=== PATIENT | female | born 1965 | race Caucasian/White ===

== ENCOUNTER → 2016-04-25 | Outpatient (CLI) | payer MEDICARE, OTHER ==
[2016-04-25 12:20] LABS: HEMOGLOBIN 13.4 gm/dl (12.3-15.3); RED BLOOD COUNT 4.56 M/UL (4.00-5.10); WHITE BLOOD COUNT 7.4 K/UL (4.5-11.0)
[2016-04-25 12:53] LABS: BUN/CREATININE RATIO 18 (0-10)
== END ==
LOC: LAB 09:59
PROVIDERS: Nurse Practitioner Primary Care
DX: E03.9 Hypothyroidism, unspecified (principal); R53.82 Chronic fatigue, unspecified
CPT/HCPCS: 36415; 80053; 82784; 84443; 85025

== ENCOUNTER → 2016-06-07 | Outpatient (CLI) | payer MEDICARE, OTHER | LOC: RAD 14:34 | DX: R10.84 Generalized abdominal pain (principal); K59.00 Constipation, unspecified; R19.4 Change in bowel habit | CPT/HCPCS: 74020 ==

== ENCOUNTER → 2016-06-20 | Outpatient (CLI) | payer MEDICARE, OTHER | LOC: RAD 09:24 | DX: R13.10 Dysphagia, unspecified (principal); K21.9 Gastro-esophageal reflux disease without esophagitis; Z98.890 Other specified postprocedural states | CPT/HCPCS: 74230; 92611-GN ==

== ENCOUNTER 2020-09-06 15:38 | Emergency (ER) | payer MEDICARE, OTHER ==
[~2020-09-06 15:38] MED LIST: ABREVA2 GM TP; ADVAIR HFA 230-28 GM INH; ALBUTEROL SULFAT8 MG INH; ALBUTEROL1.25 MG/3 INH; AMBIEN10 MG PO; AMMONIUM LACTA140 GM TP; ATARAX PO; AZELASTINE137 MCG/0.; AZELASTINE137 MCG/0. INH; BENTYL 20MG TAB20 MG PO; BREO ELLIPTA 200-25 INH; CLOTRIMAZOLE-BE30 ML TP; COLACE 100MG C100 MG PO; COLACE100 MG PO; CRESTOR20 MG PO; CYANOCOBAL1000 MCG/1 INJ; CYCLOBENZAPRINE10 MG PO; FLEXERIL 10 MG10 MG PO; HYDROXYZINE HCL25 MG PO; LINZESS145 MCG PO; LOPRESSOR 25 MG25 MG PO; MELATONIN3 MG PO; MIRALAX17 GM PO; MIRTAZAPINE30 MG PO; MOBIC15 MG PO; MULTI-VITAMIN1 EACH PO; MULTIVITAMINS1 EAC1 PO; MYCOSTATIN POWD15 GM TOP; NASAL MIST126 ML INH; NEOSPORIN OIN14.2 GM TOP; NEOSPORIN TOP; NEURONTIN 300300 MG PO; NIZORAL 2% CREA15 GM TOP; NYSTATIN1 EAC2 MC; OCEAN NASAL SPRAY INH; PROAIR HFA8.5 GM INH; PROTONIX40 MG PO; QUETIAPINE FUM100 MG PO; REFRESH TEARS15 ML EYEBOTH; REMERON30 MG PO; SEROQUEL400 MG PO; SINGULAIR10 MG PO; SORE THROAT SP177 ML PO; SYNTHROID112 MCG PO; TROKENDI XR200 MG PO; TYLENOL 325MG325 MG PO; TYLENOL325 MG PO; VENTOLIN HFA 66.7 GM INH; VIBRAMYCIN100 MG PO; VITAMIN B-121000 MC3 INJ; XYZAL5 MG PO; ZOFRAN4 MG PO; ZOLOFT100 MG PO
[2020-09-06 17:19] LABS: HEMOGLOBIN 13.4 gm/dl (12.3-15.3); RED BLOOD COUNT 4.48 M/UL (4.00-5.10); WHITE BLOOD COUNT 8.4 K/UL (4.5-11.0)
[2020-09-06] MEDS ORDERED: PYRIDIUM200 MG PO (17:36)
[2020-09-06] MEDS ORDERED: OMNICEF 300 MG300 MG PO (17:36)
== END 2020-09-06 19:30 | disposition home or self-care (01) ==
LOC: ER1 15:38
PROVIDERS: Emergency Medicine
DX: N39.0 Urinary tract infection, site not specified (principal)
CPT/HCPCS: 80053; 81001; 83690; 85025; 96374; 96375; 99284; J0696; J1885; J2405; J7030

== ENCOUNTER 2021-09-05 15:22 | Emergency (ER) | payer MEDICARE, OTHER | END 2021-09-05 17:50 | disposition home or self-care (01) | LOC: ER1 15:22 | DX: S13.4XXA Sprain of ligaments of cervical spine, initial encounter (principal); S73.101A Unspecified sprain of right hip, initial encounter; S50.01XA Contusion of right elbow, initial encounter; S80.01XA Contusion of right knee, initial encounter; S00.83XA Contusion of other part of head, initial encounter; S60.222A Contusion of left hand, initial encounter; I11.9 Hypertensive heart disease without heart failure; K21.9 Gastro-esophageal reflux disease without esophagitis; J45.909 Unspecified asthma, uncomplicated; W01.10XA Fall on same level from slipping, tripping and stumbling with subsequent striking against unspecified object, initial encounter | CPT/HCPCS: 70450; 72125; 73080; 73130; 73564; 73700; 99284 ==

== ENCOUNTER → 2021-09-05 | Outpatient (CLI) | payer MEDICARE, OTHER ==
[~2021-09-05] MED LIST changes: +OMNICEF 300 MG300 MG PO; +PYRIDIUM200 MG PO
== END ==
LOC: HEART 5 14:57
DX: R00.2 Palpitations (principal)

== ENCOUNTER 2021-09-16 19:43 | Emergency (ER) | payer MEDICARE, OTHER ==
[2021-09-16 20:31] LABS: HEMOGLOBIN 12.8 gm/dl (12.3-15.3); RED BLOOD COUNT 4.27 M/UL (4.00-5.10); WHITE BLOOD COUNT 5.1 K/UL (4.5-11.0)
[2021-09-16 20:53] LABS: BUN/CREATININE RATIO 13 (0-10)
== END 2021-09-17 | disposition home or self-care (01) ==
LOC: ER1 19:43
PROVIDERS: Physician Assistant
DX: U07.1 COVID-19 (principal); E78.5 Hyperlipidemia, unspecified; I10 Essential (primary) hypertension; Z95.5 Presence of coronary angioplasty implant and graft
CPT/HCPCS: 0240U; 71045; 80053; 82550; 82553; 84484; 85025; 85379; 93005; 99285

== ENCOUNTER → 2021-11-01 | Outpatient (CLI) | payer MEDICARE, OTHER | LOC: HEART 5 08:30 | DX: R07.9 Chest pain, unspecified (principal); R94.39 Abnormal result of other cardiovascular function study | CPT/HCPCS: 78452; 93306; A9502; J2785 ==